=== PATIENT | male | born 1970 | race Caucasian/White ===

== ENCOUNTER 2017-12-07 15:39 | Inpatient (IN) | payer MEDICAID ==
[2017-12-07] MEDS ORDERED: Sodium Chloride 0.9% 10 ML Syringe FLUSH PRN (16:01)
[2017-12-07] MEDS ORDERED: Acetaminophen 325 MG Tab PO PRN (16:01)
[2017-12-07 17:51] LABS: CHLORIDE,CL 106 mEq/L (98-106); SODIUM,NA 149 mEq/L (136-145)
[2017-12-07] MEDS: Carvedilol 6.25 MG Tab PO SCH (19:17)
[2017-12-07] MEDS: Furosemide 40 MG/4 ML VIAL IVPUSH SCH (19:18)
[2017-12-07] MEDS: Enoxaparin 40 MG/0.4 ML Syringe SUBCUT SCH (21:03)
[2017-12-08] MEDS: Pantoprazole 40 MG Tab.CR PO SCH (07:59)
[2017-12-08] MEDS: Carvedilol 6.25 MG Tab PO SCH ×2 (07:59→19:37)
[2017-12-08] MEDS: Potassium Chloride 10 MEQ Tab.ER PO SCH (07:59)
[2017-12-08] MEDS: Aspirin 81 MG Tab.Chew CHEW SCH (07:59)
[2017-12-08] MEDS: Furosemide 40 MG/4 ML VIAL IVPUSH SCH ×2 (07:59→19:37)
[2017-12-08] MEDS: Enoxaparin 40 MG/0.4 ML Syringe SUBCUT SCH (19:37)
--- NOTE | 2017-12-08 22:16 | PCM.PN ---
- General Info Date of Service: 12/08/17 Admission Dx/Problem (Free Text): Hypoxia Peripheral edema Functional Status: Reports: Pain Controlled, Tolerating Diet, Ambulating - Review of Systems General: Reports: Weakness, Fatigue. Denies: Fever HEENT: Reports: No Symptoms Pulmonary: Reports: Shortness of Breath, Cough. Denies: Sputum Cardiovascular: Reports: Edema. Denies: Chest Pain, Lightheadedness Gastrointestinal: Reports: Vomiting. Denies: Abdominal Pain, Nausea Genitourinary: Reports: No Symptoms Skin: Reports: No Symptoms - Patient Data Vitals - Most Recent: Last Vital Signs Temp 97.2 F 12/08/17 19:38 Pulse 81 12/08/17 19:38 Resp 18 12/08/17 19:38 BP 124/53 L 12/08/17 19:38 Pulse Ox 99 12/08/17 19:38 Weight - Most Recent: 298 lb 9.6 oz I&O - Last 24 Hours: Intake & Output 12/08/17 12/08/17 12/08/17 06:59 14:59 22:59 Intake Total 920 1240 Output Total 1700 2900 Balance -780 -1660 Lab Results Last 24 Hours: Laboratory Results - last 24 hr 12/08/17 Range/Units 09:15 D-Dimer, Quantitative 0.84 H (0.00-0.50) Med Orders - Current: Current Medications Acetaminophen (Tylenol) 650 mg PO Q4H PRN PRN Reason: Pain (Mild 1-3)/fever Aspirin (Aspirin) 81 mg CHEW DAILY [facility] Last Admin: 12/08/17 07:59 Dose: 81 mg Carvedilol (Coreg) 6.25 mg PO BID [facility] Last Admin: 12/08/17 19:37 Dose: 6.25 mg Enoxaparin Sodium (Lovenox) 40 mg SUBCUT Q24H [facility] Last Admin: 12/08/17 19:37 Dose: 40 mg Furosemide (Lasix) 40 mg IVPUSH BID [facility] Last Admin: 12/08/17 19:37 Dose: 40 mg Pantoprazole Sodium (Protonix) 40 mg PO DAILY [facility] Last Admin: 12/08/17 07:59 Dose: 40 mg Potassium Chloride (Klor-Con 10) 20 meq PO DAILY [facility] Last Admin: 12/08/17 07:59 Dose: 20 meq Sodium Chloride (Saline Flush) 10 ml FLUSH ASDIRECTED PRN PRN Reason: Keep Vein Open - Exam Quality Assessment: Supplemental Oxygen General: Alert, Oriented HEENT: Mucous Membr. Moist/[place] Neck: Supple Lungs: Decreased Breath Sounds Cardiovascular: Regular Rate, Regular Rhythm GI/Abdominal Exam: Normal Bowel Sounds, Soft, Non-Tender Back Exam: Decreased Range of Motion Extremities: Pedal Edema (edema 2-3+ to lower extremities) - Problem List & Annotations (1) Hypoxia SNOMED Code(s): 844472786 Code(s): R09.02 - HYPOXEMIA Status: Acute Priority: High Current Visit : Yes (2) Peripheral edema SNOMED Code(s): 944882730 Code(s): R60.9 - EDEMA, UNSPECIFIED Status: Acute Priority: High Current Visit: Yes - Problem List Review Problem List Initiated/Reviewed/Updated: Yes - My Orders Last 24 Hours: My Active Orders 12/08/17 08:55 Chest 2V [CR] Routine - Assessment Assessment:: Hypoxia Edema - Plan Plan:: Patient continues to feel short of breath and has ongoing cough. Did fall yesterday and was found by EMS to have sats in the 80s so was brought in for evaluation. Patient states he has gone up over 20# as of late, has increased edema. Has not seen cardiology now for a year. Was admitted for IV Lasix and is down now 6# today. Oxygen sats are 96% on 1 liter. Labs done on admit stable, proBNP 134. Awaiting echocardiogram. Chest xray ordered. D-dimer mildly elevated at 0.84. Will continue with IV Lasix, wean off oxygen as able. Reevaluate discharge in am.
[2017-12-09] MEDS: Aspirin 81 MG Tab.Chew CHEW SCH (07:58)
[2017-12-09] MEDS: Pantoprazole 40 MG Tab.CR PO SCH (07:58)
[2017-12-09] MEDS: Potassium Chloride 10 MEQ Tab.ER PO SCH (07:58)
[2017-12-09] MEDS: Carvedilol 6.25 MG Tab PO SCH (07:58)
[2017-12-09] MEDS: Furosemide 40 MG/4 ML VIAL IVPUSH SCH (07:58)
[2017-12-09 08:10] VITALS: BP 115/46
--- NOTE | 2017-12-09 21:26 | PCM.DCSUM1 ---
Discharge Summary - Hospital Course Free Text/Narrative:: Patient presented with concerns of hypoxia and edema. He had fallen and called EMS as was unable to get up alone. His oxygen sat was in the 80s on their arrival and did not improve while on room air. He had noted a weight gain of over 20#, legs more uncomfortable. Has ongoing cough, shortness of breath with activity. Admitted and started on IV Lasix. Initial labs did show a BNP of 134. Other labs stable. - Discharge Data Discharge Date: 12/09/17 Discharge Disposition: Home, Self-Care 01 Condition: Good - Discharge Diagnosis/Problem(s) (1) Hypoxia SNOMED Code(s): 356249987 ICD Code: R09.02 - HYPOXEMIA Status: Acute Priority: High (2) Peripheral edema SNOMED Code(s): 467980955 ICD Code: R60.9 - EDEMA, UNSPECIFIED Status: Acute Priority: High - Patient Summary/Data Complications: none Consults: Consultations 12/07/17 16:01 PT Evaluation and Treatment [CONS] Routine Hospital Course: Patient has done well during hospitalization. Is down 8#. Ambulating short distances and tolerating well. Able to wean off oxygen and maintains over 90%. Tolerating diet well. Chest xray does show cardiomegaly. Awaiting echocardiogram report. Edema slightly improved but will need to continue to wrap, elevate and watch his salt intake on discharge. Lung sounds are clear. Discharge home. Increase Lasix to 120 mg per day. Follow up for labs, recheck with Jackson Robles in one week. - Patient Instructions Diet: Low Sodium Other/Special Instructions: compression stockings or JOSE bandage wraps to legs. Elevate legs throughout the day - Discharge Plan Prescriptions/Med Rec: Furosemide 40 mg PO DAILY #30 tablet Furosemide 80 mg PO DAILY #30 tablet Home Medications: Home Meds Aspirin 81 mg CHEW DAILY 12/10/16 [History] Carvedilol 6.25 mg PO BID 12/10/16 [History] Naproxen Sodium [Aleve] 440 mg PO ASDIRECTED PRN 12/10/16 [History] Potassium Chloride [Klor-Con M20] 20 meq PO DAILY 12/10/16 [History] Pantoprazole 40 mg PO DAILY 12/07/17 [History] Furosemide 40 mg PO DAILY #30 tablet 12/09/17 [Rx] Furosemide 80 mg PO DAILY #30 tablet 12/09/17 [Rx] Referrals: Margarito Robles PA-C [Primary Care Provider] - (Follow up with Jackson Robles in one week. Panel 8, magnesium prior to appointment) - Discharge Summary/Plan Comment Discharge Summary/Plan Comment: Discharge home Lasix 80 mg in the am, 40 mg at noon Elevate legs Jose bandages for compression Watch salt intake - General Info Date of Service: 12/09/17 Admission Dx/Problem (Free Text: Hypoxia Peripheral edema Functional Status: Reports: Pain Controlled, Tolerating Diet, Ambulating - Review of Systems General: Reports: Weakness, Fatigue. Denies: Fever HEENT: Reports: No Symptoms Pulmonary: Reports: Shortness of Breath, Cough Cardiovascular: Reports: Edema. Denies: Chest Pain, Lightheadedness Gastrointestinal: Reports: No Symptoms Genitourinary: Reports: No Symptoms Musculoskeletal: Reports: Leg Pain Skin: Reports: No Symptoms - Patient Data Vitals - Most Recent: Last Vital Signs Temp 97 F 12/09/17 08:00 Pulse 80 12/09/17 08:00 Resp 18 12/09/17 08:00 BP 115/46 L 12/09/17 08:00 Pulse Ox 95 12/09/17 08:00 Weight - Most Recent: 295 lb 12.8 oz I&O - Last 24 hours: Intake & Output 12/09/17 12/09/17 12/09/17 06:59 14:59 22:59 Intake Total 625 Output Total 900 Balance -275 Med Orders - Current: Current Medications Discontinued Medications Acetaminophen (Tylenol) 650 mg PO Q4H PRN PRN Reason: Pain (Mild 1-3)/fever Aspirin (Aspirin) 81 mg CHEW DAILY [facility] Last Admin: 12/09/17 07:58 Dose: 81 mg Carvedilol (Coreg) 6.25 mg PO BID [facility] Last Admin: 12/09/17 07:58 Dose: 6.25 mg Enoxaparin Sodium (Lovenox) 40 mg SUBCUT Q24H [facility] Last Admin: 12/08/17 19:37 Dose: 40 mg Furosemide (Lasix) 40 mg IVPUSH BID [facility] Last Admin: 12/09/17 07:58 Dose: 40 mg Pantoprazole Sodium (Protonix) 40 mg PO DAILY [facility] Last Admin: 04/12/18 07:58 Dose: 40 mg Potassium Chloride (Klor-Con 10) 20 meq PO DAILY [facility] Last Admin: 12/09/17 07:58 Dose: 20 meq Sodium Chloride (Saline Flush) 10 ml FLUSH ASDIRECTED PRN PRN Reason: Keep Vein Open - Exam General: Reports: Alert, Oriented HEENT: Reports: Mucous Membr. Moist/[place] Neck: Reports: Supple Lungs: Reports: Clear to Auscultation, Normal Respiratory Effort Cardiovascular: Reports: Regular Rate, Regular Rhythm GI/Abdominal Exam: Normal Bowel Sounds, Soft Extremities: Pedal Edema (3+) Skin: Reports: Warm, Dry Neurological: Reports: No New Focal Deficit
== END 2017-12-09 10:55 | disposition home or self-care (01) | DRG 292 ==
LOC: UNDOADMIN 15:39 → CC.MS 15:39
PROVIDERS: ADMIT Physician Assistant Medical; ATTEND Family Medicine
DX: I50.30 Unspecified diastolic (congestive) heart failure (principal); I42.9 Cardiomyopathy, unspecified; R09.02 Hypoxemia; R53.1 Weakness; R53.83 Other fatigue; R79.1 Abnormal coagulation profile; G71.11 Myotonic muscular dystrophy; M19.90 Unspecified osteoarthritis, unspecified site; J45.909 Unspecified asthma, uncomplicated; K21.0 Gastro-esophageal reflux disease with esophagitis; R05 Cough; E66.9 Obesity, unspecified; Z79.82 Long term (current) use of aspirin; Z79.899 Other long term (current) drug therapy
CPT/HCPCS: 36415; 71046; 80053; 81001; 83880; 85025; 85379; 93005; 93306; 97110-GP; 97161-GP; A9270-GY; J1650; J1940

== ENCOUNTER 2018-12-06 07:17 | Emergency (ER) | payer MEDICAID ==
[2018-12-06] MEDS ORDERED: EPINEPHrine 1:10,000 1 MG/10 ML Syringe IV ONE (07:18)
[2018-12-06] MEDS: EPINEPHrine 1:10,000 1 MG/10 ML Syringe IVPUSH ONE (07:22)
--- NOTE | 2018-12-06 08:01 | EDM.PDOC ---
ED HPI GENERAL MEDICAL PROBLEM - General Chief Complaint: CPR in Progress Time Seen by Provider: 12/06/18 07:17 Source of Information: Reports: EMS History Limitations: Reports: Other (Unresponsive) - History of Present Illness INITIAL COMMENTS - FREE TEXT/NARRATIVE: Ebenezer is a 48 year old male who presents to the ED via [facility]. Initially [facility] was dispatched to patient's home by his mother for a lift assist. Mother reports that around 0550 this morning they were preparing for his usual morning shower. She reports he was sitting on the toilet and she left the room to get something. Then reports she heard a loud bang and went to the room to find the patient had fallen to the floor. She believes he was breathing but was struggling as he was curled up in the small bathroom. She called EMS originally for a lift assist and then called again stated he was having trouble breathing. [facility] reports upon arrival patient was found on bathroom floor, unresponsive to painful stimuli and not breathing. They attempted to lift patient from floor and initiated CPR. While enroute, CPR was continued. He did receive 4 doses of epinephrine and 1 amp of sodium bicarb prior to ED arrival. EMS reports they did get one pulse check where shock was advised, but otherwise patient has been in PEA. Pupils are fixed and dilated at time of ED arrival. CPR is in progress with Walt machine. EMS was able to get a James airway in but unsuccessfully tried intubation. Patient has copious amounts of blood from mouth. Difficult bagging patient due to this. Patient is very edematous. Family reports he has cardiomyopathy, as well as myotonic dystrophy. Onset: Today, Sudden Onset Date: 12/06/18 Onset Time: 05:50 - Related Data Allergies Allergy/AdvReac Type Severity Reaction Status Date / Time Unable to Assess Allergy Unverified 12/06/18 08:21 Home Meds: Home Meds . [Unable to Verify Home Med List] 12/06/18 [History] Past Medical History HEENT History: Reports: Impaired Vision Cardiovascular History: Reports: SOB on Exertion, Other (See Below) Other Cardiovascular History: TACHYCARDIA Respiratory History: Reports: Asthma, COPD, SOB Musculoskeletal History: Reports: Other (See Below) Other Musculoskeletal History: MYTONIC DYSTROPHY - Past Surgical History Cardiovascular Surgical History: Reports: None Respiratory Surgical History: Reports: None Musculoskeletal Surgical History: Reports: None Social & Family History - Family History Family Medical History: Noncontributory - Caffeine Use Caffeine Use: Reports: Soda ED ROS GENERAL - Review of Systems Review Of Systems: Unable To Obtain ED EXAM, CPR - Physical Exam Exam: See Below Limited By: Unresponsive General Appearance: Obese Eye Exam: Bilateral Eye: Other (Fixed and dilated) Nose: Nasal Drainage (blood) Throat/Mouth: Other (copious amounts of blood) Head: Atraumatic, Normocephalic Respiratory Chest: Other (breath sounds bilaterally after intubation- crackles throughout) Cardiovascular: CPR In Progress Extremities: Pedal Edema (weeping edema BLE), Redness Neurological: Unresponsive Skin Exam: Cyanosis Course - Orders/Labs/Meds Meds: Medications Discontinued Medications Generic Name Dose Route Start Last Admin Trade Name Angeloq PRN Reason Stop Dose Admin Epinephrine HCl 1 mg 12/06/18 07:22 12/06/18 07:22 Epinephrine 1:10,000 IVPUSH 12/06/18 07:23 1 mg ONETIME ONE Administration Epinephrine HCl 1 mg 12/06/18 07:18 Epinephrine 1:10,000 IV 12/06/18 07:19 .STK-MED ONE - Re-Assessments/Exams Free Text/Narrative Re-Assessment/Exam: Upon arrival to ED, CPR was already in progress by EMS. Patient was intubated by technical sales manager upon arrival to ED. DId have good breath sounds bilaterally after intubation. Patient had copious amounts of blood from mouth, apparently from the time CPR was initiated. 400 mL blood was suctioned per EMS and additional ~ 300 mL suctioned upon ED arrival. CPR was continued for total time of ~ 1.25 hours, 40 minutes prehospital arrival. Did consult with [facility] ED physician who recommends calling code given scenario and length of down time. Bilateral pupils are fixed and dilated. Time of 07. Patient's mother and Harris present. Discussed case with them. No further questions. Family declines autopsy. Did notify field marketing coordinator, Dr. Bahena as well. Please see [facility] documentation as well for further details. Departure - Departure Time of Disposition: : Disposition: 20 Preliminary Cause of *Q: Cardiac Arrest Clinical Impression: Cardiac arrest - Discharge Information *PRESCRIPTION DRUG MONITORING PROGRAM REVIEWED*: Not Applicable *COPY OF PRESCRIPTION DRUG MONITORING REPORT IN PATIENT OPAL: Not Applicable Referrals: Zeltinger,Angella L, [employer]IN[employer] [Primary Care Provider] - Forms: ED Department Discharge
== END 2018-12-06 09:42 | disposition expired ==
LOC: CC.ED 07:17
DX: I46.9 Cardiac arrest, cause unspecified (principal); J44.9 Chronic obstructive pulmonary disease, unspecified
CPT/HCPCS: 31500; 92950; 96374; 99285; J0171